=== PATIENT | male | born 1990 | race Two or more races ===

== ENCOUNTER 2025-04-06 17:16 | Emergency (ER) | payer MEDICAID, SELFPAY ==
[2025-04-06 17:36] VITALS: BP 133/87; PULSE 70; RESP 20; TEMP 37.4; O2SAT 95; BMI 29.5
--- NOTE | 2025-04-06 17:50 | XR_ITS ---
Examination: Abdomen sonogram, Limited Date and time of exam: April 06, 2025 1912 hours INDICATIONS: Epigastric pain today Technique: Real-time ruiz scale transabdominal sonographic images of the upper abdomen obtained. Findings: Negative for gallstones Gallbladder wall 4 7 cm with possible edema Common bile duct 0.3 cm Pancreatic head 3.6 cm Liver 19.7 cm fatty infiltration Normal hepatopedal portal venous flow Patent IVC IMPRESSION: Suspicious for acalculus cholecystitis, consider HIDA scan or MRCP follow-up
--- NOTE | 2025-04-06 17:51 | PD.EDABDPN ---
ED Abdominal Pain RME/HPI General Chief Complaint: Abdominal Pain Stated complaint: Abdominal pain today Time seen by provider: 04/06/25 17:24 Arrival date/time: 04/06/25 17:16 RME / HPI RME / HPI narrative: 34-year-old male patient came in for evaluation regarding right upper quadrant pain. Onset of symptoms since early today as sudden onset of severe right upper quadrant pain, described as crampy, severity 9 out of 10. Incident happened after eating tortilla with beans and cheese. Patient denies any fever no vomiting no diarrhea no constipation no other complaints noted denies any abdominal surgery. Patient went to PCP and was referred here for further evaluation. Related Data Previous Rx's ?Medication ?Instructions ?Recorded Sulfamethoxazole/Trimethoprim DS * 1 tab PO Q12HR #10 tabs 11/06/14 (BACTRIM DS *) dicyclomine 20 mg tablet 20 mg PO QID PRN abdominal pain 04/06/25 #30 tabs pantoprazole 40 mg tablet,delayed 40 mg PO QDAY #20 tabs 04/06/25 release (Protonix) Allergies Allergy/AdvReac Type Severity Reaction Status Date / Time NKA* Allergy Uncoded 04/06/25 17:20 Review of Systems Review of Systems Narrative Review of Systems: Review of system reviewed and within normal limits except mentioned in HPI ED Exam Narrative Physical exam: VITAL SIGNS: Reviewed. GENERAL APPEARANCE: Alert and interactive, follows commands, no acute distress, HEAD AND FACE: Non-traumatic. ENT: PERRL, pink conjunctivitis, eyelid no trauma, Mucous membrane moist. NECK: Supple, nontender, no nuchal rigidity. CHEST: No tenderness, no crepitus, no paradoxical movement, no retractions. LUNGS: Clear, well ventilated, symmetric, no rales, no wheezing, no ronchi, no stridor, good breath sounds bilaterally. HEART: Regular rate, regular rhythm, no murmur, no gallops. ABDOMEN: Soft, positive bowel sounds, nondistended, no guarding, right upper quadrant tenderness, no rebound, no masses, RECTAL: Deferred. GENITAL: Deferred. NEUROLOGICAL: Gross motor function intact sensory function intact, Appropriate for age. MUSCULOSKELETAL: low back nontender, full range of motion. EXTREMITIES: Nontender, full range of motion. SKIN: Color pink, dry, no rash, no lacerations, no abrasions, no contusions. LYMPHATICS: Deferred. Course Quality Measures none Orders Category Date Time Status US gall bladder Stat Exams 04/06/25 17:50 Completed CBC Stat Lab 04/06/25 18:04 Completed Comprehensive Metabolic Panel Stat Lab 04/06/25 18:04 Completed Lipase Stat Lab 04/06/25 18:04 Completed Prothrombin Time with INR Stat Lab 04/06/25 18:04 Completed UA, C/S IF [Urinalysis, C/S if Indicated] Stat Lab 04/06/25 18:39 Completed Ketorolac Inj [Toradol Inj] Med 04/06/25 17:50 Discontinued 30 mg IM X1 ONE Ondansetron Odt [Zofran Odt] Med 04/06/25 17:50 Discontinued 4 mg PO X1 ONE Vital Signs Vital signs: Vital Signs Temperature 99.3 F 04/06/25 17:36 Pulse Rate 70 04/06/25 17:36 Respiratory Rate 20 04/06/25 17:36 Blood Pressure 133/87 H 04/06/25 17:36 Pulse Oximetry (%) 95 04/06/25 17:36 Oxygen Delivery Method Room Air 04/06/25 17:36 Abdominal Pain [facility] Narrative [facility] Narrative:: 34-year-old male patient came in for evaluation regarding right upper quadrant pain. Onset of symptoms since early today as sudden onset of severe right upper quadrant pain, described as crampy, severity 9 out of 10. Incident happened after eating tortilla with beans and cheese. Patient denies any fever no vomiting no diarrhea no constipation no other complaints noted denies any abdominal surgery. Patient went to PCP and was referred here for further evaluation. CBC showed no leukocytosis noted. CMP total bili is normal LFTs are normal. Clinically patient is not showing any sign of cholecystitis. Ultrasound of gallbladder showed possible acute acalculous cholecystitis. Prior to discharge patient is not having any pain. Patient stable for discharge home. Patient data External records reviewed:: None Clinical information provided by:: patient Social determinants that could affect healthcare access:: none Patient has the following chronic illnesses:: None How is presenting disease/condition affected by chronic disease/condition?: no chronic disease Evaluation data The following diagnostics were reviewed and interpreted by me:: lab results and radiology exam(s) Lab and/or radiology exams considered but not ordered:: None Interpretation Summary: See results MDM Medications / Prescriptions Medications or Prescriptions considered but not ordered:: None Medication administrations:: Medication Administration History Discontinued Medications Ketorolac Tromethamine (Ketorolac Inj 60 Mg/2 Ml Vial) 30 mg IM X1 ONE Stop: 04/06/25 17:51 Last Admin: 04/06/25 19:03 Dose: 30 mg Documented By: RICARDO Ondansetron HCl (Ondansetron Odt 4 Mg Tabrap) 4 mg PO X1 ONE; Protocol Stop: 04/06/25 17:51 Last Admin: 04/06/25 19:02 Dose: 4 mg Documented By: RICARDO Toradol Consultations Consultation(s) initiated? (list below): No Diagnosis Differential diagnosis abdominal pain: abdominal pain, gastroenteritis and pancreatitis Most likely diagnosis given after review of the tests above:: Epigastric abdominal pain Admission Indicated Admission indicated?: not indicated Explain why admission is indicated or not indicated:: Stable Admission Request Was there a request for admission?: No Disposition Plan Disposition Plan: Discharge Discharge Attestation Discharge Attestation: The patient and all family members were given an opportunity to ask questions and understood the discharge instructions. Discharge instructions specifically effects, indications for sooner follow up or return to the emergency department, and the expected course of current diagnosis. Patient condition: Stable Discharge Plan Plan Patient Disposition: HOME (Self Care) Discharge Disposition comment: Stable Prescriptions/Referrals Prescriptions/Med Rec: New dicyclomine 20 mg tablet 20 mg PO QID PRN (Reason: abdominal pain) Qty: 30 0RF pantoprazole [Protonix] 40 mg tablet,delayed release (DR/EC) 40 mg PO QDAY Qty: 20 0RF No Action Sulfamethoxazole/Trimethoprim DS * (BACTRIM DS *) 1 TAB tablet 1 tab PO Q12HR Qty: 10 0RF Referrals: No Primary/Family,Physician [Primary Care Provider] - In 1 week Problem List Clinical Impression: Acute epigastric pain Patient/Caregiver Discharge Instructions Discharge Activity: activity as tolerated Education Materials: Understanding the Pain Response Additional Instructions: Thank you for the opportunity for serving you today. You are stable for discharged . You are advised to: Follow-up with your PCP in 1 to 2 days Return to ED for worsening of symptoms, fever, vomiting Increase oral fluids Take medication as prescribed Print Language: Bulgarian Stand Alone Forms: Marzena Award Info., Patient Portal Info Letter PA/EBEN Supervising Physician JESSICA/EBEN Supervising Physician: MD Varsha
[2025-04-06 18:28] LABS: Basophils # (Auto) 0.0 Thou/mm3 (0.0-0.2); Basophils % (Auto) 0 % (0-2.5); Eosinophils # (Auto) 0.2 Thou/mm3 (0.0-0.5); Eosinophils % (Auto) 2 % (0-10); Hematocrit 43.4 % (41.0-53.0); Hemoglobin 14.2 g/dL (13.5-16.0); Immature Granulocytes Auto 0.02 Thou/mm3 (0.00-0.00); Lymphocytes # (Auto) 2.7 Thou/mm3 (1.0-4.8); Lymphocytes % (Auto) 29 % (10-50); Mean Corpuscular HGB Conc 32.7 g/dl (31.0-37.0); Mean Corpuscular Hemoglobin 28.6 pg (25.0-35.0); Mean Corpuscular Volume 88 fL (80-100); Monocytes # (Auto) 0.6 Thou/mm3 (0.0-0.8); Monocytes % (Auto) 7 % (0-12); Neutrophils # (Auto) 5.7 Thou/mm3 (1.8-7.7); Neutrophils % (Auto) 62 % (37-80); Nucleated Red Blood Cell # 0.00 Thou/mm3 (0.00-0.00); Nucleated Red Blood Cell % 0 /100 WBC (0); Platelet Count 327 Thou/mm3 (140-440); RDW Standard Deviation 39.4 fL (35.1-43.9); Red Blood Count 4.96 Miln/mm3 (4.50-5.90); White Blood Count 9.3 Thou/mm3 (3.8-10.6)
[2025-04-06 18:46] LABS: INR 1.0 (0.9-1.3); Prothrombin Time 10.8 Seconds (9.0-12.2)
[2025-04-06 18:47] LABS: Alanine Aminotransferase 21 U/L (10-49); Albumin, Serum 4.6 gm/dL (3.5-5.0); Albumin/Globulin Ratio 1.9 (1.2-2.2); Alkaline Phosphatase 98 U/L (46-116); Anion Gap 11 (7-16); Aspartate Amino Transferase 19 U/L (0-34); BUN/Creatinine Ratio 8 Ratio (12-20); Bilirubin,Total 0.4 mg/dL (0.3-1.2); Blood Urea Nitrogen 7 mg/dL (9-23); Calcium 9.5 mg/dL (8.3-10.6); Calcium (Corrected) 9.5 mg/dL (8.5-10.1); Carbon Dioxide 25.5 mMol/L (20.0-31.0); Chloride 105 mMol/L (98-107); Creatinine (Component) 0.9 mg/dL (0.6-1.3); Estimated Creatinine Clearance 113.1 mL/min (>60); Globulin 2.4 gm/dL (2.3-3.5); Glucose 111 mg/dL (74-106); Lipase 53 U/L (12-53); Osmolality,Calculated 280 (275-295); Potassium 3.9 mMol/L (3.4-5.1); Sodium 141 mMol/L (136-145); Total Protein 7.0 gm/dL (5.7-8.2); eGFR > 60 See Note
[2025-04-06] MEDS: ONDANSETRON ODT 4 MG TABRAP PO (19:02)
[2025-04-06] MEDS: KETOROLAC INJ 60 MG/2 ML VIAL 30 MG IM (19:03)
[2025-04-06 19:15] LABS: Collection Type, Urine Clean Catch; RBC,Urine 0 /hpf (0-3); WBC,Urine 0 /hpf (0-5)
[2025-04-06 19:28] LABS: Bilirubin,Urine Negative (Negative); Blood,Urine Negative (Negative); Clarity,Urine Clear (Clear/Hazy); Color,Urine Lt-Yellow (Lt Yel-Yel); Culture Indicated,Urine Not Indicated; Glucose, Urine Negative (Negative); Ketones,Urine Negative (Negative); Leukocyte Esterase,Urine Negative (Negative); Nitrite,Urine Negative (Negative); PH,Urine 5.5 (5.0-7.0); Protein,Urine Negative (Neg - Trace); Specific Gravity,Urine 1.014 (1.001-1.035); Squamous Epithelial Cell,Urine < 1 /hpf (0-5); Urobilinogen,Urine Negative mg/dL (0.0-1.0)
== END 2025-04-06 21:01 | disposition home or self-care (01) ==
PROVIDERS: Nurse Practitioner Family; Emergency Provider Emergency Medicine
DX: R10.13 Epigastric pain (principal)
CPT/HCPCS: 36415; 76705; 80053; 81001; 83690; 85025; 85610; 96372; 99283; J1885; Q0162